=== PATIENT | male | born 1985 | race African-American/Black ===

== ENCOUNTER → 2016-12-06 | Day surgery (SDC) | payer BC ==
[~2016-12-06] MED LIST: CLARITIN10 M3 PO; DICYCLOMINE HCL10 MG PO; HYDROCODON-ACE1 EAC7 PO; LEXAPRO20 MG PO; PHENERGAN25 MG PO; PROBIOTIC1 EAC5 PO; PROPRANOLOL HCL10 MG PO; ZANTAC150 MG PO; ZOFRAN8 MG PO
--- NOTE | ~2016-12-06 | OR ---
Unit #: [id number] #: [id number] Patient: ARJUN CASTANEDA JR [id number] [address] [place], [place] [address] [id number] MR#: [id number] NAME: ARJUN CASTANEDA JR ROOM: Date of Procedure: 12/06/2016 Admission Date: 12/06/2016 Surgeon: Ferny Baires Jr., M.D. : 1985 Attending Physician: Ferny Baires Jr., M.D. Primary Care Physician: Angelo James OPERATIVE REPORT INDICATIONS FOR PROCEDURE The patient is a 31-year-old black male, who was in normal good health, recently noted some bulging and pain and discomfort in the umbilical area. He was noted to have what appeared to be incarcerated umbilical hernia. He is brought in this time for reduction and repair of this as an outpatient. The patient understands the procedure including the risks, including that of infection, recurrence, chronic pain, and poor healing, and consents. PREOPERATIVE DIAGNOSIS Chronic incarcerated umbilical hernia. POSTOPERATIVE DIAGNOSIS Chronic incarcerated umbilical hernia, noting approximately 1.5 cm defect. ANESTHESIA General with LMA and 0.5% Marcaine with epinephrine locally. PROCEDURE PERFORMED Reduction and repair of umbilical hernia using a Ventralex small mesh and primary closure. DESCRIPTION OF PROCEDURE The patient was positioned in supine position. After being anesthetized, he was prepped and draped in routine fashion for umbilical hernia repair. The periumbilical area was locally blocked with 0.5% Marcaine with epinephrine and a keyhole type skin incision was made extending from the right over the top and to the left of the umbilicus. This was a total of approximately 2-1/2 to 3 inches. This was carried down through subcutaneous tissue down to the area of the hernia. The tissue was taken from the posterior aspect of the umbilical skin with a #10 blade scalpel and after it was released, the hernia defect was obvious. There was approximately 1.5 cm defect with chronic incarcerated fat within it. The fat was reduced back into the preperitoneal space and using [facility], the space was checked and noted to be clear and a small Ventralex round mesh was placed and brought up against the anterior abdominal wall and straightened to be sure that it was flat and the strap sutured to the fascia with interrupted 0 Ethibond sutures. The straps were excised and the remaining opening of the fascia was closed with interrupted 0 Ethibond sutures using modified Taqueria-Yeh type stitches. The wound was irrigated and after hemostasis achieved with Bovie cautery, the posterior dermis of the umbilicus was tacked to the fascia with 3-0 Unit #: [id number] #: [id number] Patient: CASTANEDA JRARJUN Huggins Vicryl suture. The subcutaneous tissue approximated with interrupted 3-0 Vicryl sutures. Skin edges approximated with stainless-steel skin clips and skin stapling device. Sterile dressings were applied externally. Estimated blood loss less than 50 mL. The patient received less than 1000 mL crystalloid solution during the procedure. Sponges and instrument counts were correct x3. No drains were used. No complications. The patient was taken to the recovery room with stable vital signs in satisfactory condition. Dictated by... Ferny Baires Jr., M.D. JMB/yash TD: 12/07/2016 03:29 JOB #: [id number] CC: Angelo Corcoran M.D. OPERATIVE REPORT Page 1 of 1 X Ferny Baires MD X PROCEDURE OPERATIVE NOTE
== END | disposition home or self-care (01) ==
LOC: CSUR 10:19
DX: K42.0 Umbilical hernia with obstruction, without gangrene (principal); K21.9 Gastro-esophageal reflux disease without esophagitis; M19.90 Unspecified osteoarthritis, unspecified site; Z79.891 Long term (current) use of opiate analgesic; Z79.899 Other long term (current) drug therapy
CPT/HCPCS: J0690; J1100; J1885; J2250; J2270; J2765